=== PATIENT | female | born 1940 | race Caucasian/White ===

== ENCOUNTER → 2018-05-15 09:26 | Outpatient (CLI) | payer MEDICARE, OTHER | END | disposition home or self-care (01) | LOC: D.US 09:26 | DX: R10.10 Upper abdominal pain, unspecified (principal) ==

== ENCOUNTER → 2018-05-26 08:41 | Outpatient (CLI) | payer MEDICARE, OTHER | END | disposition home or self-care (01) | LOC: D.CT 08:41 | DX: N28.9 Disorder of kidney and ureter, unspecified (principal) ==

== ENCOUNTER → 2018-08-09 07:38 | Outpatient (CLI) | payer MEDICARE, OTHER | END | disposition home or self-care (01) | LOC: D.NM 07:38 | PROVIDERS: ATTEND Internal Medicine Gastroenterology | DX: R13.10 Dysphagia, unspecified (principal); R11.2 Nausea with vomiting, unspecified ==